=== PATIENT | male | born 2005 | race African-American/Black ===

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

== ENCOUNTER 2025-05-20 09:41 | Emergency (ER) | payer MEDICAID ==
[~2025-05-20] VITALS: Ht 188 cm; Wt 123.0 kg
[~2025-05-20 09:41] MED LIST: ONDA4TAB50 MT
[2025-05-20 09:47] VITALS: PULSE 77; RESP 18; O2SAT 100
[2025-05-20 09:54] VITALS: BP 177/102; TEMP 36.9; O2SAT 99
[2025-05-20 10:14] LABS: BASOPHILS % 0.3 % (0.0-2.0); EOSINOPHILS % 0.2 % (0.0-5.0); HEMATOCRIT. 52.0 % (42.0-52.0); HEMOGLOBIN. 17.0 g/dL (14.0-18.0); LYMPHOCYTES % 24.1 % (20.0-50.0); MEAN PLATELET VOLUME 10.7 fl (7.4-10.4); MONOCYTES % 10.6 % (2.0-8.0); NEUTROPHILS % 64.8 % (40.0-76.0); PLATELET 183 x1000/uL (130-400); RED BLOOD CELL COUNT 6.79 mill/uL (4.7-6.1); RED CELL DISTRIBUTION WIDTH 17.0 % (11.6-14.6)
[2025-05-20 10:16] LABS: CLARITY URINE CLEAR (CLEAR); COLOR URINE DARK YELLOW (YELLOW); GLUCOSE URINE NEGATIVE (NEGATIVE); KETONES URINE 1+ (NEGATIVE); LEUKOCYTE ESTERASE URINE TRACE (NEGATIVE); NITRITE URINE NEGATIVE (NEGATIVE); OCCULT BLOOD URINE 1+ (NEGATIVE); PH URINE 6.5 (4.5-8.0); PROTEIN URINE 2+ (NEGATIVE); SPECIFIC GRAVITY URINE 1.022 (1.005-1.030); UROBILINOGEN URINE 2.0 E.U./dL (0.2-1.0)
[2025-05-20 10:31] LABS: FINE GRANULAR CASTS URINE 0-5 /lpf; HYALINE CASTS URINE 0-5 /lpf; SQUAMOUS EPITHELIAL CELL URINE FEW /lpf (RARE/1+)
[2025-05-20 10:32] LABS: MUCUS URINE 1+ /lpf (NONE/TRACE); WBC URINE 0-2 /hpf (0-2)
[2025-05-20 10:33] LABS: CREATININE 1.3 mg/dL (0.6-1.3); UREA NITROGEN BLOOD 11 mg/dL (9-23)
[2025-05-20 10:33] LABS: BACTERIA URINE TRACE
[2025-05-20 10:35] LABS: ASPARTATE AMINOTRANSFERASE 33 IU/L (<34); BILIRUBIN DIRECT 0.5 mg/dL (<=3.0)
[2025-05-20 10:36] LABS: BILIRUBIN TOTAL 1.6 mg/dL (0.1-1.0); PROTEIN TOTAL 8.8 g/dL (6.0-8.3)
[2025-05-20] MEDS: MAGNESIUM/ALUMINUM HYDROXIDE/SIMETHICONE 30ML UDC PO ONE (10:59)
[2025-05-20] MEDS: FAMOTIDINE 20MG TABLET PO ONE (10:59)
[2025-05-20] MEDS: ONDANSETRON 4MG ODT PO ONE (10:59)
[2025-05-20] MEDS ORDERED: ONDA-239 PO (11:28)
== END 2025-05-20 11:42 | disposition home or self-care (01) ==
LOC: ER 09:42
DX: A08.4 Viral intestinal infection, unspecified (principal)
CPT/HCPCS: 99284; 80076; 80048; 81003; 83690; 85025; 36415; Q0162